=== PATIENT | male | born 1930 | race Caucasian/White ===

== ENCOUNTER → 2017-09-30 | Outpatient (CLI) | payer OTHER ==
[~2017-09-30] MED LIST: ASPI-555 PO; BUDE10.2 IH; ENAL5TAB PO; METO-408 PO; PRED5TAB PO; TOLT2TAB PO; TRIA0.2573 PO
== END | disposition home or self-care (01) ==
LOC: SHCH 13:02
PROVIDERS: ATTEND Internal Medicine Cardiovascular Disease
DX: I10 Essential (primary) hypertension (principal); I25.10 Atherosclerotic heart disease of native coronary artery without angina pectoris
CPT/HCPCS: 93306; 93880

== ENCOUNTER → 2017-10-16 | Outpatient (CLI) | payer OTHER ==
[~2017-10-16] MED LIST changes: +REGADENOSON 0.4 MG/5 ML PF SYG IVP SCH
== END | disposition home or self-care (01) ==
LOC: SHCH 07:47
PROVIDERS: ATTEND Internal Medicine Cardiovascular Disease
DX: I10 Essential (primary) hypertension (principal)
CPT/HCPCS: 78452; 93017; 96374; A9500 ×2; J2785

== ENCOUNTER → 2018-09-10 | Outpatient (CLI) | payer OTHER ==
[~2018-09-10] MED LIST changes: +ALPR-410 PO; +AMOX-426 PO; +CLOP75TA32 PO; +MONT10TA24 PO; +OMEP20CA10 PO; +PRED10TA3 PO; -PRED5TAB PO; -REGADENOSON 0.4 MG/5 ML PF SYG IVP SCH; -TRIA0.2573 PO
== END | disposition home or self-care (01) ==
LOC: SHCH 08:05
PROVIDERS: ATTEND Internal Medicine Cardiovascular Disease
DX: I35.8 Other nonrheumatic aortic valve disorders (principal); I11.9 Hypertensive heart disease without heart failure; Z95.1 Presence of aortocoronary bypass graft
CPT/HCPCS: 93306

== ENCOUNTER → 2018-09-16 | Outpatient (CLI) | payer OTHER ==
[~2018-09-16] MED LIST changes: +REGADENOSON 0.4 MG/5 ML PF SYG IVP SCH
== END | disposition home or self-care (01) ==
LOC: SHCH 08:06
PROVIDERS: ATTEND Internal Medicine Cardiovascular Disease
DX: I10 Essential (primary) hypertension (principal)
CPT/HCPCS: 78452; 93017; 96374; A9500 ×2

== ENCOUNTER 2019-12-04 08:05 | Emergency (ER) | payer OTHER ==
[~2019-12-04 08:05] MED LIST changes: -AMOX-426 PO; -MONT10TA24 PO; -OMEP20CA10 PO; +OMEP20CA12 PO; -REGADENOSON 0.4 MG/5 ML PF SYG IVP SCH
[2019-12-04] MEDS ORDERED: TETANUS/DIPHTHERIA TOXOID [ADULT] 0.5 ML VIAL IM ONE (08:48)
[2019-12-04] MEDS ORDERED: OCTYL 2-CYANOACRYLATE 1 EACH TP ONE ×2 (08:52→09:48)
== END 2019-12-04 11:12 | disposition home or self-care (01) ==
LOC: EDH 08:05
DX: S62.102A Fracture of unspecified carpal bone, left wrist, initial encounter for closed fracture (principal); S51.012A Laceration without foreign body of left elbow, initial encounter; J44.9 Chronic obstructive pulmonary disease, unspecified; I10 Essential (primary) hypertension; Z87.891 Personal history of nicotine dependence; Z88.8 Allergy status to other drugs, medicaments and biological substances; W18.39XA Other fall on same level, initial encounter; Y93.89 Activity, other specified; Y92.098 Other place in other non-institutional residence as the place of occurrence of the external cause; Y99.8 Other external cause status
CPT/HCPCS: 12032; 29125; 73110; 90471; 90714

== ENCOUNTER 2020-01-13 11:40 | Emergency (ER) | payer OTHER ==
[2020-01-13] VITALS (7 sets, daily range): BP systolic 120–154; BP diastolic 57–76
[2020-01-13] MEDS ORDERED: SODIUM CHLORIDE 0.9% 500ML 500 ML IV ONE (11:55)
[2020-01-13 12:00] LABS: BASOPHILS % (AUTO) 0.7 % (0.0-5.0); EOSINOPHILS % (AUTO) 1.8 % (0.0-8.0); HEMATOCRIT 43.5 % (42-54); LYMPHOCYTES % (AUTO) 15.3 % (21.0-51.0); MEAN CORPUSCULAR HEMOGLOBIN 29.9 pg (27.0-33.0); MEAN CORPUSCULAR HGB CONC 33.1 g/dL (32.0-36.0); MEAN CORPUSCULAR VOLUME 90.2 fL (79-99); MONOCYTES % (AUTO) 7.2 % (3.0-13.0); NEUTROPHILS % (AUTO) 74.6 % (40.0-77.0); PLATELET COUNT (AUTO) 196 K/uL (130-400); RED BLOOD CELL COUNT(AUTO) 4.82 MIL/uL (4.50-6.20); RED CELL DISTRIBUTION WIDTH 13.7 % (11.0-15.5); WHITE BLOOD COUNT (AUTO) 12.2 K/uL (4.8-10.8)
[2020-01-13 12:13] LABS: CREATININE 1.1 mg/dL (0.5-1.5); POTASSIUM 3.6 mmol/L (3.5-5.1)
[2020-01-13 12:17] LABS: ALBUMIN 3.7 g/dL (3.5-5.0); BILIRUBIN,TOTAL 0.9 mg/dL (0.2-1.0); TOTAL PROTEIN, SERUM 6.9 g/dL (6.0-8.3)
[2020-01-13] MEDS ORDERED: ONDANSETRON HCL 4 MG/2 ML VIAL ONE (12:26)
[2020-01-13] MEDS ORDERED: GLUCAGON 1MG KIT 1 MG ML ONE (12:26)
[2020-01-13] MEDS ORDERED: PROPOFOL 10 MG/ML 20ML VIAL IV ONE ×2 (15:06→15:36)
[2020-01-13] MEDS ORDERED: LIDOCAINE HCL 2% 20ML ONE (15:07)
[2020-01-13] MEDS ORDERED: GLYCOPYRROLATE 0.2 MG/ML 5 ML VIAL ONE (15:07)
[2020-01-13] MEDS ORDERED: SUCCINYLCHOLINE 200MG/10ML SYR ONE (15:07)
== END 2020-01-13 17:57 | disposition home or self-care (01) ==
LOC: EDH 11:40
DX: T18.128A Food in esophagus causing other injury, initial encounter (principal); K22.2 Esophageal obstruction; R11.2 Nausea with vomiting, unspecified; J44.9 Chronic obstructive pulmonary disease, unspecified; I10 Essential (primary) hypertension; Z88.8 Allergy status to other drugs, medicaments and biological substances; Z86.73 Personal history of transient ischemic attack (TIA), and cerebral infarction without residual deficits; Z87.891 Personal history of nicotine dependence; X58.XXXA Exposure to other specified factors, initial encounter; Y93.89 Activity, other specified; Y92.89 Other specified places as the place of occurrence of the external cause; Y99.8 Other external cause status
CPT/HCPCS: 36415; 43247; 43249; 80053; 84484; 85025; 93005; 96361; 96374; 96375; 99284; A4222; A4223; A4606; A4620; J0330; J1610; J2405; J2704 ×2; J3490 ×2; J7040

== ENCOUNTER 2020-01-16 08:55 | Inpatient (IN) | payer OTHER ==
[~2020-01-16] VITALS: Ht 167.6 cm; Wt 76.2 kg
[2020-01-16] VITALS (24 sets, daily range): BP systolic 46–169; BP diastolic 48–89
[~2020-01-16 08:55] MED LIST changes: -ASPI-555 PO; +ASPI-556 PO; -ENAL5TAB PO; +ENAL5TAB17 PO
[2020-01-16 09:43] LABS: BASOPHILS % (AUTO) 0.2 % (0.0-5.0); EOSINOPHILS % (AUTO) 1.2 % (0.0-8.0); HEMATOCRIT 36.6 % (42-54); LYMPHOCYTES % (AUTO) 14.5 % (21.0-51.0); MEAN CORPUSCULAR HEMOGLOBIN 29.3 pg (27.0-33.0); MEAN CORPUSCULAR HGB CONC 32.2 g/dL (32.0-36.0); MEAN CORPUSCULAR VOLUME 90.8 fL (79-99); MONOCYTES % (AUTO) 5.4 % (3.0-13.0); NEUTROPHILS % (AUTO) 78.4 % (40.0-77.0); PLATELET COUNT (AUTO) 200 K/uL (130-400); RED BLOOD CELL COUNT(AUTO) 4.03 MIL/uL (4.50-6.20); RED CELL DISTRIBUTION WIDTH 13.8 % (11.0-15.5); WHITE BLOOD COUNT (AUTO) 15.4 K/uL (4.8-10.8)
[2020-01-16 09:45] LABS: CREATININE 1.1 mg/dL (0.5-1.5); POTASSIUM 3.5 mmol/L (3.5-5.1)
[2020-01-16 09:49] LABS: INR 0.95 (0.85-1.15); PROTHROMBIN TIME 10.3 SEC (9.6-11.6)
[2020-01-16 09:51] LABS: ALBUMIN 2.9 g/dL (3.5-5.0); BILIRUBIN,TOTAL 1.9 mg/dL (0.2-1.0); TOTAL PROTEIN, SERUM 6.8 g/dL (6.0-8.3)
[2020-01-16] MEDS ORDERED: ALBUTEROL SULFATE 0.083% 2.5 MG/3 ML INH IH ONE ×4 (11:00)
[2020-01-16] MEDS ORDERED: DIATR MEGLU/DIATRIZOATE SODIUM 30 ML BOTTLE ONE (11:39)
[2020-01-16] MEDS ORDERED: ZOSYN 3.375GM+NS 50ML 50 ML IV ONE (11:44)
[2020-01-16] MEDS ORDERED: SODIUM CHLORIDE 0.9% 1000ML 1,000 ML IV SCH (12:03)
[2020-01-16] MEDS ORDERED: HYDRALAZINE HCL 20 MG/ML VIAL IV PRN (12:15)
[2020-01-16] MEDS ORDERED: NITROGLYCERIN 0.4 MG SL TAB SL PRN (12:15)
[2020-01-16] MEDS ORDERED: ACETAMINOPHEN 325 MG TAB PO PRN (12:15)
[2020-01-16] MEDS ORDERED: ACETAMINOPHEN 650 MG SUPPOSITORY RC ONE (12:16)
[2020-01-16] MEDS ORDERED: PANTOPRAZOLE 40 MG/VIAL IVP SCH (12:30)
[2020-01-16] MEDS ORDERED: PANTOPRAZOLE SODIUM 80 MG in SODIUM CHLORIDE 0.9% 100 ML IV SCH (12:30)
[2020-01-16] MEDS: DOXYCYCLINE 100MG+NS 250ML 250 ML IV SCH (13:15)
[2020-01-16] MEDS ORDERED: ACETAMINOPHEN 650 MG SUPPOSITORY RC PRN (13:30)
[2020-01-16] MEDS ORDERED: PHARMACY COMMUNICATION MISC SCH (13:30)
[2020-01-16] MEDS ORDERED: DOXYCYCLINE 100MG+NS 250ML 250 ML IV ONE (13:48)
[2020-01-16] MEDS: IPRATROPIUM/ALBUTEROL SULFATE 3 ML SOLUTION IH SCH ×3 (13:55→22:00)
[2020-01-16] MEDS ORDERED: PROPOFOL 10 MG/ML 20ML VIAL IV ONE (15:34)
[2020-01-16] MEDS ORDERED: FENTANYL CITRATE PF 50 MCG/1 ML 2ML VIAL ONE (15:35)
[2020-01-16] MEDS ORDERED: SUCCINYLCHOLINE 200MG/10ML SYR ONE (15:35)
[2020-01-16] MEDS ORDERED: ONDANSETRON HCL 4 MG/2 ML VIAL ONE (15:35)
[2020-01-16] MEDS ORDERED: LIDOCAINE HCL 2% 20ML ONE (15:35)
[2020-01-16] MEDS ORDERED: MAGNESIUM 2GM PREMIX 50ML 50 ML IV SCH (16:00)
[2020-01-16] MEDS ORDERED: LIDOCAINE HCL-MPF 1% 2ML VIAL IJ PRN (16:00)
[2020-01-16] MEDS: LACTATED RINGERS 1000ML 1,000 ML IV SCH (17:15)
[2020-01-16] MEDS: ZOSYN 3.375GM+NS 50ML 50 ML IV SCH ×2 (17:41→19:50)
[2020-01-16] MEDS: HYDROCORTISONE SOD SUCCINATE 100 MG/2 ML VIAL IV SCH (20:55)
[2020-01-16] MEDS ORDERED: FAMOTIDINE/PF 20 MG/2 ML VIAL IV SCH (21:00)
--- NOTE | 2020-01-16 23:53 | NUR ---
Dr. Porter called the unit for an update on patient. Orders received and entered into system.
[2020-01-16] MEDS ORDERED: IPRATROPIUM 0.5 MG/2.5 ML INH IH ONE (23:55)
[2020-01-17] VITALS (14 sets, daily range): BP systolic 119–171; BP diastolic 36–84
[2020-01-17] MEDS ORDERED: IPRATROPIUM 0.5 MG/2.5 ML INH IH PRN
[2020-01-17] MEDS ORDERED: DOXYCYCLINE 100MG+NS 250ML 250 ML IV ONE (00:20)
[2020-01-17] MEDS: DOXYCYCLINE 100MG+NS 250ML 250 ML IV SCH ×2 (00:26→11:53)
[2020-01-17] MEDS ORDERED: MORPHINE SULFATE 2 MG/ML 1ML SYG IM PRN (00:30)
[2020-01-17] MEDS ORDERED: MORPHINE SULFATE 2 MG/ML 1ML SYG ONE (00:32)
[2020-01-17] MEDS: LACTATED RINGERS 1000ML 1,000 ML IV SCH (01:58)
[2020-01-17] MEDS: IPRATROPIUM/ALBUTEROL SULFATE 3 ML SOLUTION IH SCH ×6 (02:00→21:45)
[2020-01-17] MEDS: ZOSYN 3.375GM+NS 50ML 50 ML IV SCH ×3 (03:47→20:12)
[2020-01-17 04:30] LABS: BASOPHILS % (AUTO) 0.1 % (0.0-5.0); EOSINOPHILS % (AUTO) 0.3 % (0.0-8.0); LYMPHOCYTES % (AUTO) 4.6 % (21.0-51.0); MEAN CORPUSCULAR HEMOGLOBIN 29.4 pg (27.0-33.0); MEAN CORPUSCULAR HGB CONC 31.6 g/dL (32.0-36.0); MEAN CORPUSCULAR VOLUME 93.1 fL (79-99); MONOCYTES % (AUTO) 7.3 % (3.0-13.0); NEUTROPHILS % (AUTO) 87.2 % (40.0-77.0); PLATELET COUNT (AUTO) 173 K/uL (130-400); RED BLOOD CELL COUNT(AUTO) 3.33 MIL/uL (4.50-6.20); RED CELL DISTRIBUTION WIDTH 14.2 % (11.0-15.5); WHITE BLOOD COUNT (AUTO) 10.3 K/uL (4.8-10.8)
[2020-01-17 04:38] LABS: ALBUMIN 2.2 g/dL (3.5-5.0); BILIRUBIN,TOTAL 1.3 mg/dL (0.2-1.0); CREATININE 0.9 mg/dL (0.5-1.5); POTASSIUM 3.7 mmol/L (3.5-5.1); TOTAL PROTEIN, SERUM 5.6 g/dL (6.0-8.3)
[2020-01-17 05:33] LABS: PLATELET MORPHOLOGY PLT CLUMPS PRESENT
--- NOTE | 2020-01-17 08:00 | NUR ---
PT'S GRANDSON CALLED TO GET UPDATE ON PT. HE WAS GIVEN UPDATE AND WAS ADVISED THAT PT HAD HIS CELL PHONE AT BEDSIDE IF HE WISHED TO TALK TO HIM.
[2020-01-17] MEDS: HYDROCORTISONE SOD SUCCINATE 100 MG/2 ML VIAL IV SCH ×2 (08:35→20:20)
[2020-01-17] MEDS ORDERED: ENOXAPARIN SODIUM 30 MG/0.3 ML SQ SCH (09:00)
--- NOTE | 2020-01-17 10:54 | NUR ---
RD NOTIFICATION PT WITH HIGH MALNUTRITION RISK. SIGNIFICANT WT LOSS WITHIN TWO WEEKS. RECOMMEND ALTERED MEANS NUTRITION MEDICALLY FEASIBLE. ENTERAL VS PPN MEDICALLY FEASIBLE. PT WITH ESOPHAGEAL PERFORATION, POSSIBLE DIVERTICULOSIS, POSSIBLE BOWEL LOOPS PER EMR AND IMAGING. RD TO CONTINUE TO MONITOR. PLEASE NOTIFY RD ADDITIONAL NUTRITION CONCERNS ARISE. THANK YOU. Addendum: 01/17/20 at [address] Amended: Links added.
--- NOTE | 2020-01-17 11:20 | NUR ---
INITIAL SW spoke with patient. He states he lives alone. Emergency contacts are grandson, Dank Pablo, and granddaughter, Dodie Abdul, . Both live in [place]. Patient has no home services but has a private caregiver to come to assist him as needed. DME: standard walker, nebulizer, BPM. Patient states he is able to complete ADL's independently. His Caregiver assists with transportation. PCP is Dr. Sunday Christensen. Patient did not provide name of pharmacy he uses. DCP is home. SW spoke to patient's grandson, Dank Pablo. Stanislav stated that family was planning for patient to move back to [place] permanently in the next few weeks. As per stanislav, patient would spend suarez in [place] and then return to [place] in the Fall. Addendum: 01/17/20 at 1125 by JOSE JACOBS Amended: Links added.
--- NOTE | 2020-01-17 11:25 | NUR ---
Emergency Contacts Patient's emergency contacts are grandson, Dank Pablo, and granddaughter, Dodie Abdul, . Both live in [place].
[2020-01-17] MEDS: METOPROLOL TARTRATE 1 MG/ML 5ML VIAL IV SCH ×2 (14:45→20:14)
--- NOTE | 2020-01-17 15:30 | NUR ---
picc line 6 chadian 3 lumen picc line inserted to right upper arm using sterile technique, pt alexa well, no adverse reactions noted, picc line at 42 cm insertion site, 4 cm exposed . sterile dressing applied after completion , all 3 ports flushed without complications , good blood return to all ports, pt denied any pain or numbness to right arm,report given to primary nurse Ozzie Crabtree RN. picc line ready to be used per VPS bullseye confirmation. tip placed to lower 1/3 of SVC or at AT CAJ
--- NOTE | 2020-01-17 15:45 | NUR ---
CALLED DR. COTTON CONCERNING PICC LINE AND NEEDING ORDERS FOR TPN. OFFICE STAFF ADVISED NURSING STAFF THAT HE WOULD BE [place] [facility] [place].
[2020-01-17] MEDS ORDERED: SODIUM CHLORIDE 3% FOR INHALATION 4 ML/AMP VIAL.NEB IH ONE (18:50)
[2020-01-17] MEDS ORDERED: [UNRECOGNIZED DRUG - OTHER] IV SCH ×16 (20:00)
[2020-01-17] MEDS ORDERED: POTASSIUM ACETATE IV SCH ×16 (20:00)
[2020-01-17] MEDS ORDERED: SODIUM CHLORIDE IV SCH ×16 (20:00)
[2020-01-17] MEDS ORDERED: SODIUM ACETATE IV SCH ×16 (20:00)
[2020-01-18] VITALS (19 sets, daily range): BP systolic 119–184; BP diastolic 59–92
[2020-01-18] MEDS: DOXYCYCLINE 100MG+NS 250ML 250 ML IV SCH ×2 (01:24→14:01)
[2020-01-18] MEDS: IPRATROPIUM/ALBUTEROL SULFATE 3 ML SOLUTION IH SCH ×4 (01:48→21:54)
[2020-01-18] MEDS: METOPROLOL TARTRATE 1 MG/ML 5ML VIAL IV SCH ×3 (03:19→21:25)
[2020-01-18] MEDS: ZOSYN 3.375GM+NS 50ML 50 ML IV SCH ×3 (03:19→21:22)
[2020-01-18 04:42] LABS: BASOPHILS % (AUTO) 0.1 % (0.0-5.0); EOSINOPHILS % (AUTO) 0.4 % (0.0-8.0); HEMATOCRIT 29.2 % (42-54); LYMPHOCYTES % (AUTO) 5.4 % (21.0-51.0); MEAN CORPUSCULAR HEMOGLOBIN 29.2 pg (27.0-33.0); MEAN CORPUSCULAR HGB CONC 30.8 g/dL (32.0-36.0); MEAN CORPUSCULAR VOLUME 94.8 fL (79-99); MONOCYTES % (AUTO) 6.8 % (3.0-13.0); NEUTROPHILS % (AUTO) 86.8 % (40.0-77.0); PLATELET COUNT (AUTO) 166 K/uL (130-400); RED BLOOD CELL COUNT(AUTO) 3.08 MIL/uL (4.50-6.20); RED CELL DISTRIBUTION WIDTH 14.2 % (11.0-15.5); WHITE BLOOD COUNT (AUTO) 8.4 K/uL (4.8-10.8)
[2020-01-18 05:05] LABS: ALBUMIN 1.9 g/dL (3.5-5.0); BILIRUBIN,TOTAL 0.7 mg/dL (0.2-1.0); POTASSIUM 3.3 mmol/L (3.5-5.1); TOTAL PROTEIN, SERUM 5.2 g/dL (6.0-8.3)
[2020-01-18] MEDS: LACTATED RINGERS 1000ML 1,000 ML IV SCH ×2 (07:30→11:32)
[2020-01-18] MEDS: POTASSIUM CHLORIDE 10MEQ/100ML 100 ML IV PRN ×2 (07:57→12:34)
[2020-01-18] MEDS: HYDROCORTISONE SOD SUCCINATE 100 MG/2 ML VIAL IV SCH ×2 (08:01→21:42)
[2020-01-18] MEDS ORDERED: DIATR MEGLU/DIATRIZOATE SODIUM 30 ML BOTTLE ONE (08:42)
[2020-01-18] MEDS ORDERED: TRIA0.2573 PO ×2 (12:04→12:09)
[2020-01-18] MEDS ORDERED: IPRATROPIUM/ALBUTEROL SULFATE 3 ML SOLUTION IH SCH (14:00)
--- NOTE | 2020-01-18 14:25 | NUR ---
RD FOLLOW UP NOTE PICC LINE PLACED. TPN INITIATED AT 75MLS/HR. TPN MEETING PT PROTEIN NEEDS. NOTED, ELEVATED BG LEVELS (346), AT TIME OF SCREEN. RD TO MONITOR DAILY. PLEASE NOTIFY NUTRITION CONCERNS ARISE. THANK YOU. Addendum: 01/18/20 at [address] Amended: Links added.
[2020-01-18] MEDS ORDERED: METOPROLOL TARTRATE 1 MG/ML 5ML VIAL IV SCH (14:45)
[2020-01-18] MEDS ORDERED: SIMETHICONE 80 MG TAB.CHEW PO SCH (16:00)
--- NOTE | 2020-01-18 16:31 | NUR ---
ELEVATED BP DR MCCRARY NOTIFIED VIA TELEPHONE THAT PATIENT'S BP REMAINS HIGH, CHARTED (SYSTOLIC BP 170'S, AND HR 1TEENS); ORDER GIVEN TO INCREASE METOPROLOL FROM DOSE CHANGED EARLIER TODAY TO 5MG IV Q6 TO 7.5MG IV Q6; WILL CONTINUE TO MONITOR
[2020-01-18] MEDS: INSULIN HUMULIN R 100 UNIT/ML 3ML SQ SCH ×2 (16:37→21:20)
--- NOTE | 2020-01-18 17:15 | NUR ---
BEDSIDE REPORT GIVEN TO BETHEL ESTRELLA AND PATIENT MOVED TO ROOM 230; PATIENT STATES NO COMPLAINTS AT THIS TIME
--- NOTE | 2020-01-18 17:20 | NUR ---
RECEIVED TRANSFER TO ROOM 230. AAOX3, RESP.'S EVEN AND UNLABORED. O2 AT 3L/NC. DENIES ANY C/O SOB, DENIES ANY CURRENT PAIN. TPN RESUMED TO PICC LINE; TWO PORTS PATENT, FLUSHED WITH 10 ML NS. ORIENTED TO ROOM AND SURROUNDINGS. CALL LIGHT WITHIN REACH, VERBALIZED ABILITY TO USE. BED LOWS, SIDE RAILS UP X2.
[2020-01-18] MEDS ORDERED: SODIUM ACETATE IV SCH ×8 (21:00)
[2020-01-18] MEDS ORDERED: [UNRECOGNIZED DRUG - OTHER] IV SCH ×8 (21:00)
[2020-01-18] MEDS ORDERED: POTASSIUM ACETATE IV SCH ×8 (21:00)
[2020-01-18] MEDS ORDERED: SODIUM CHLORIDE IV SCH ×8 (21:00)
[2020-01-18] MEDS: INSULIN GLARGINE 100 UNITS/ML 10 ML VIAL SQ SCH (21:20)
[2020-01-18] MEDS: SIMETHICONE 80 MG TAB.CHEW PO SCH (21:23)
[2020-01-19] MEDS: DOXYCYCLINE 100MG+NS 250ML 250 ML IV SCH ×2 (00:05→12:34)
[2020-01-19] MEDS ORDERED: GUAIFENESIN-CODEINE 5 ML SYRUP ONE ×2 (00:14→00:22)
[2020-01-19] MEDS ORDERED: GUAIFENESIN-CODEINE 5 ML SYRUP PO PRN (00:15)
[2020-01-19 04:00] VITALS: BP 168/92
[2020-01-19] MEDS: ZOSYN 3.375GM+NS 50ML 50 ML IV SCH ×3 (04:10→19:49)
[2020-01-19] MEDS: METOPROLOL TARTRATE 1 MG/ML 5ML VIAL IV SCH ×2 (04:11→09:58)
[2020-01-19 04:55] LABS: BASOPHILS % (AUTO) 0.2 % (0.0-5.0); EOSINOPHILS % (AUTO) 2.4 % (0.0-8.0); HEMATOCRIT 34.1 % (42-54); LYMPHOCYTES % (AUTO) 6.5 % (21.0-51.0); MEAN CORPUSCULAR HEMOGLOBIN 30.1 pg (27.0-33.0); MEAN CORPUSCULAR HGB CONC 31.4 g/dL (32.0-36.0); MEAN CORPUSCULAR VOLUME 96.1 fL (79-99); MONOCYTES % (AUTO) 6.9 % (3.0-13.0); NEUTROPHILS % (AUTO) 83.5 % (40.0-77.0); PLATELET COUNT (AUTO) 198 K/uL (130-400); RED BLOOD CELL COUNT(AUTO) 3.55 MIL/uL (4.50-6.20); RED CELL DISTRIBUTION WIDTH 14.3 % (11.0-15.5); WHITE BLOOD COUNT (AUTO) 9.9 K/uL (4.8-10.8)
[2020-01-19 05:23] LABS: ALBUMIN 2.1 g/dL (3.5-5.0); BILIRUBIN,TOTAL 0.7 mg/dL (0.2-1.0); CREATININE 0.9 mg/dL (0.5-1.5); POTASSIUM 3.7 mmol/L (3.5-5.1); TOTAL PROTEIN, SERUM 5.8 g/dL (6.0-8.3)
[2020-01-19] MEDS: IPRATROPIUM/ALBUTEROL SULFATE 3 ML SOLUTION IH SCH ×3 (06:25→21:18)
[2020-01-19] MEDS: INSULIN HUMULIN R 100 UNIT/ML 3ML SQ SCH ×3 (06:28→16:30)
[2020-01-19 08:20] VITALS: BP 166/75
[2020-01-19] MEDS: SIMETHICONE 80 MG TAB.CHEW PO SCH ×3 (09:44→20:40)
[2020-01-19] MEDS: HYDROCORTISONE SOD SUCCINATE 100 MG/2 ML VIAL IV SCH ×2 (09:44→20:40)
[2020-01-19] MEDS: METOPROLOL TARTRATE 25 MG TAB PO SCH ×2 (12:41→20:41)
[2020-01-19] MEDS: ENALAPRIL MALEATE 5 MG TAB PO SCH ×2 (12:42→20:41)
[2020-01-19 12:50] VITALS: BP 167/82
--- NOTE | 2020-01-19 13:30 | NUR ---
DR. ASENCIO IN ROOM SPEAKING WITH PT. RE:PLAN OF CARE. ORDERS RECEIVED.
--- NOTE | 2020-01-19 15:00 | NUR ---
RESTING IN BED WITH HOB AT 30 DEGREES, RESP.'S EVEN AND UNLABORED. WATCHING TELEVISION. DENIES ANY C/O AT THIS TIME.
--- NOTE | 2020-01-19 16:16 | NUR ---
RD FOLLOW UP Full Liquid Diet Order initiated. Glucerna with meals recommended, per MD. RD Recommend to wean off of TPN. Rec to discontinue TPN once Pt is tolerating solids. LBM 01/16/20. Elevated BG levels with steroid medications. RD to continue to monitor. Please notify as additional nutrition concerns arise. Thank you. Addendum: 01/19/20 at [address] RD Amended: Links added.
[2020-01-19 16:35] VITALS: BP 162/95
[2020-01-19] MEDS ORDERED: INSULIN HUMULIN R 100 UNIT/ML 3ML SQ SCH (17:15)
--- NOTE | 2020-01-19 17:30 | NUR ---
SITTING IN CHAIR AT BEDSIDE. CALL LIGHT WITHIN REACH.
[2020-01-19] MEDS: INSULIN LISPRO 100 UNIT/ML 3ML SQ SCH ×3 (17:51→20:50)
[2020-01-19 19:11] VITALS: BP 146/88
[2020-01-19] MEDS: INSULIN GLARGINE 100 UNITS/ML 10 ML VIAL SQ SCH (20:44)
[2020-01-19 23:14] VITALS: BP 140/75
[2020-01-20 03:29] VITALS: BP 151/81
[2020-01-20 04:11] LABS: HEMATOCRIT 29.5 % (42-54); MEAN CORPUSCULAR HEMOGLOBIN 30.3 pg (27.0-33.0); MEAN CORPUSCULAR HGB CONC 32.5 g/dL (32.0-36.0); MEAN CORPUSCULAR VOLUME 93.1 fL (79-99); PLATELET COUNT (AUTO) 184 K/uL (130-400); RED BLOOD CELL COUNT(AUTO) 3.17 MIL/uL (4.50-6.20); RED CELL DISTRIBUTION WIDTH 14.3 % (11.0-15.5); WHITE BLOOD COUNT (AUTO) 7.9 K/uL (4.8-10.8)
[2020-01-20] MEDS: ZOSYN 3.375GM+NS 50ML 50 ML IV SCH ×3 (04:27→20:37)
[2020-01-20] MEDS: INSULIN LISPRO 100 UNIT/ML 3ML SQ SCH ×7 (06:11→20:22)
[2020-01-20] MEDS: IPRATROPIUM/ALBUTEROL SULFATE 3 ML SOLUTION IH SCH (06:40)
[2020-01-20 08:40] VITALS: BP 143/67
[2020-01-20] MEDS: ENALAPRIL MALEATE 5 MG TAB PO SCH ×2 (09:21→20:37)
[2020-01-20] MEDS: SIMETHICONE 80 MG TAB.CHEW PO SCH ×3 (09:21→20:37)
[2020-01-20] MEDS: HYDROCORTISONE SOD SUCCINATE 100 MG/2 ML VIAL IV SCH ×2 (09:21→20:36)
[2020-01-20] MEDS: METOPROLOL TARTRATE 25 MG TAB PO SCH ×2 (09:21→20:37)
--- NOTE | 2020-01-20 09:45 | NUR ---
DR ASENCIO NEW ORDERS PER DR ASENCIO, STATES DIET CAN BE ADVANCED AND DC PLANNING FOR TOMORROW.
[2020-01-20 12:29] VITALS: BP 128/65
[2020-01-20 16:35] VITALS: BP 156/100
[2020-01-20] MEDS: PANTOPRAZOLE SODIUM 40 MG TABLET.DR PO SCH (17:39)
[2020-01-20 20:06] VITALS: BP 165/75
[2020-01-20] MEDS: INSULIN GLARGINE 100 UNITS/ML 10 ML VIAL SQ SCH (20:22)
--- NOTE | 2020-01-20 21:00 | NUR ---
PT ABLE TO TAKE MEDICATIONS. PICC LINE VERIFIED, BLOOD DRAW NOTED. NO PAIN STATED. SOME SWELLING AND REDNESS NOTED TO SITE.
[2020-01-20 23:32] VITALS: BP 134/54
[2020-01-21] VITALS (8 sets, daily range): BP systolic 95–144; BP diastolic 38–94
[2020-01-21] MEDS: ZOSYN 3.375GM+NS 50ML 50 ML IV SCH ×3 (03:55→20:34)
--- NOTE | 2020-01-21 04:00 | NUR ---
HOSPITALIST AKI MARR NOTIFIED OF PT SOB, WHEEZING, LOWER O2 LEVELS, LOC CHANGES. ORDERED STAT LASIX, CXR, LACTIC ACID, PROCALCITONIN, AND 1:1 SITTER. DUONEBS Q6HRS PRN. AND X1DOSE NOW.
[2020-01-21] MEDS: FUROSEMIDE 10 MG/ML 4ML VIAL IV SCH (04:15)
[2020-01-21] MEDS ORDERED: IPRATROPIUM/ALBUTEROL SULFATE 3 ML SOLUTION IH SCH (04:15)
[2020-01-21] MEDS ORDERED: FUROSEMIDE 10 MG/ML 4ML VIAL ONE (04:21)
[2020-01-21] MEDS ORDERED: IPRATROPIUM/ALBUTEROL SULFATE 3 ML SOLUTION IH ONE (04:26)
[2020-01-21 04:42] LABS: BASOPHILS % (AUTO) 0.7 % (0.0-5.0); EOSINOPHILS % (AUTO) 5.6 % (0.0-8.0); MEAN CORPUSCULAR HEMOGLOBIN 29.4 pg (27.0-33.0); MEAN CORPUSCULAR HGB CONC 31.6 g/dL (32.0-36.0); MEAN CORPUSCULAR VOLUME 93.3 fL (79-99); MONOCYTES % (AUTO) 9.6 % (3.0-13.0); NEUTROPHILS % (AUTO) 69.5 % (40.0-77.0); PLATELET COUNT (AUTO) 230 K/uL (130-400); RED BLOOD CELL COUNT(AUTO) 3.43 MIL/uL (4.50-6.20); RED CELL DISTRIBUTION WIDTH 14.4 % (11.0-15.5); WHITE BLOOD COUNT (AUTO) 6.8 K/uL (4.8-10.8)
[2020-01-21 04:49] LABS: ABG BASE EXCESS -0.7 mmol/L (-2.0-3.0); ABG PCO2 24 mmHg (35-48)
[2020-01-21 04:57] LABS: POTASSIUM 3.7 mmol/L (3.5-5.1)
[2020-01-21] MEDS: PANTOPRAZOLE SODIUM 40 MG TABLET.DR PO SCH ×2 (06:08→16:46)
[2020-01-21] MEDS: INSULIN LISPRO 100 UNIT/ML 3ML SQ SCH ×7 (06:08→20:51)
[2020-01-21] MEDS: IPRATROPIUM/ALBUTEROL SULFATE 3 ML SOLUTION IH SCH ×4 (06:19→23:17)
--- NOTE | 2020-01-21 08:00 | NUR ---
ASSESSMENT PT IS SITTING UP IN CHAIR, AWAKE AND ALERT BUT HAS UNSTEADY GAIT, ATTEMPTING TO GET OUT OF CHAIR, 1:1 SITTER AT BEDSIDE. REORIENTATED TO PLACE AND SITUATION. AM MEDS GIVEN WITH WATER, NO CHOKING NO GAGGING NOTED. TOLERATED BREAKFAST. CALL LIGHT WITHIN REACH.
[2020-01-21] MEDS: SIMETHICONE 80 MG TAB.CHEW PO SCH ×3 (08:18→20:34)
[2020-01-21] MEDS: HYDROCORTISONE SOD SUCCINATE 100 MG/2 ML VIAL IV SCH ×2 (08:18→20:34)
[2020-01-21] MEDS: METOPROLOL TARTRATE 25 MG TAB PO SCH ×2 (08:18→20:35)
[2020-01-21] MEDS: ENALAPRIL MALEATE 5 MG TAB PO SCH ×2 (08:19→20:37)
[2020-01-21] MEDS: INSULIN GLARGINE 100 UNITS/ML 10 ML VIAL SQ SCH (20:50)
[2020-01-22 04:00] VITALS: BP 154/77
[2020-01-22 04:01] LABS: BASOPHILS % (AUTO) 0.5 % (0.0-5.0); EOSINOPHILS % (AUTO) 2.7 % (0.0-8.0); HEMATOCRIT 31.5 % (42-54); LYMPHOCYTES % (AUTO) 13.9 % (21.0-51.0); MEAN CORPUSCULAR HEMOGLOBIN 29.2 pg (27.0-33.0); MEAN CORPUSCULAR HGB CONC 31.7 g/dL (32.0-36.0); MEAN CORPUSCULAR VOLUME 92.1 fL (79-99); MONOCYTES % (AUTO) 8.4 % (3.0-13.0); NEUTROPHILS % (AUTO) 73.8 % (40.0-77.0); PLATELET COUNT (AUTO) 276 K/uL (130-400); RED BLOOD CELL COUNT(AUTO) 3.42 MIL/uL (4.50-6.20); RED CELL DISTRIBUTION WIDTH 14.2 % (11.0-15.5); WHITE BLOOD COUNT (AUTO) 7.5 K/uL (4.8-10.8)
[2020-01-22 04:09] LABS: CREATININE 1.2 mg/dL (0.5-1.5)
[2020-01-22] MEDS: FUROSEMIDE 10 MG/ML 4ML VIAL IV SCH (04:15)
[2020-01-22] MEDS: ZOSYN 3.375GM+NS 50ML 50 ML IV SCH (04:23)
[2020-01-22] MEDS: INSULIN LISPRO 100 UNIT/ML 3ML SQ SCH ×4 (06:15→11:30)
[2020-01-22] MEDS: IPRATROPIUM/ALBUTEROL SULFATE 3 ML SOLUTION IH SCH ×2 (06:18→11:05)
[2020-01-22] MEDS: PANTOPRAZOLE SODIUM 40 MG TABLET.DR PO SCH (06:36)
[2020-01-22] MEDS: POTASSIUM CHLORIDE 20MEQ/100ML 100 ML IV PRN ×2 (06:36→10:15)
[2020-01-22 07:55] VITALS: BP 122/73
[2020-01-22] MEDS: HYDROCORTISONE SOD SUCCINATE 100 MG/2 ML VIAL IV SCH (08:37)
[2020-01-22] MEDS: ENALAPRIL MALEATE 5 MG TAB PO SCH (08:38)
[2020-01-22] MEDS: METOPROLOL TARTRATE 25 MG TAB PO SCH (08:38)
[2020-01-22] MEDS: SIMETHICONE 80 MG TAB.CHEW PO SCH (08:38)
[2020-01-22] MEDS ORDERED: POTASSIUM CHLORIDE 20 MEQ ERTAB PO ONE (10:14)
[2020-01-22] MEDS ORDERED: AUGM250L PO (10:18)
--- NOTE | 2020-01-22 11:04 | NUR ---
DISCHARGE INSTRUCTIONS/INFORMATION GIVEN TO PATIENT. TEACH BACK METHOD UTILIZED TO EDUCATE PATIENT ON DIET, NEW MEDICATION PRESCRIBED, SAFETY PRECAUTIONS, S/S TO MONITOR FOR, WHEN TO CALL MD, AND FOLLOW UP APPOINTMENTS. ALL BELONGINGS WERE PACKED. TELE PACK REMOVED AND RETURNED. AWAITING PATIENT'S RIDE.
--- NOTE | 2020-01-22 11:37 | NUR ---
TRIPLE LUMEN PICC LINE REMOVED ORDERED. TIP WAS INTACT. PATIENT TOLERATED PICC LINE REMOVAL.
== END 2020-01-22 11:44 | disposition home or self-care (01) | DRG 871 ==
LOC: EDH 08:55 → EDHIP 12:03 → 2BH 17:21 → 2AH 01-18 17:20 → 2DH 01-21 06:47 → 2AH 01-21 17:58
PROVIDERS: ADMIT Internal Medicine; ATTEND Internal Medicine
PROC: 0D738DZ Dilation of Lower Esophagus with Intraluminal Device, Via Natural or Artificial Opening Endoscopic (ICD-10-PCS; 2020-01-16)
PROC: BD11ZZZ Fluoroscopy of Esophagus (ICD-10-PCS; 2020-01-16)
PROC: 02HV33Z Insertion of Infusion Device into Superior Vena Cava, Percutaneous Approach (ICD-10-PCS; principal; 2020-01-17)
PROC: B548ZZA Ultrasonography of Superior Vena Cava, Guidance (ICD-10-PCS; 2020-01-17)
PROC: 3E0436Z Introduction of Nutritional Substance into Central Vein, Percutaneous Approach (ICD-10-PCS; 2020-01-17)
DX: A41.50 Gram-negative sepsis, unspecified (principal); K22.3 Perforation of esophagus; J98.51 Mediastinitis; J98.11 Atelectasis; E44.0 Moderate protein-calorie malnutrition; J98.2 Interstitial emphysema; I16.0 Hypertensive urgency; I25.10 Atherosclerotic heart disease of native coronary artery without angina pectoris; R54 Age-related physical debility; J61 Pneumoconiosis due to asbestos and other mineral fibers; K22.2 Esophageal obstruction; D64.9 Anemia, unspecified; I10 Essential (primary) hypertension; I77.819 Aortic ectasia, unspecified site; Z77.090 Contact with and (suspected) exposure to asbestos; R13.10 Dysphagia, unspecified; R93.3 Abnormal findings on diagnostic imaging of other parts of digestive tract; K31.89 Other diseases of stomach and duodenum; Z68.27 Body mass index [BMI] 27.0-27.9, adult; Z79.52 Long term (current) use of systemic steroids; Z79.899 Other long term (current) drug therapy; Z95.1 Presence of aortocoronary bypass graft; Z87.891 Personal history of nicotine dependence; Z86.73 Personal history of transient ischemic attack (TIA), and cerebral infarction without residual deficits; Z88.8 Allergy status to other drugs, medicaments and biological substances; Z82.5 Family history of asthma and other chronic lower respiratory diseases; K20.9 Esophagitis, unspecified
CPT/HCPCS: 36415; 36600; 43247; 43249; 43266; 71045; 71250; 74176; 74220; 76000; 80048; 80053; 82550; 82803; 82948; 83036; 83605; 83735; 83880; 84100; 84132; 84145; 84484; 85025; 85027; 85610; 85730; 86850; 86900; 86901; 87040; 87071; 87205; 87633; 87804; 93005; 94640; 94644; 94664; 96361; 96374; 96375; 97039; A4606; C1751; C1874; C1894; C9113; G0378; J0330; J0610; J1610; J1720; J1815; J1940; J2405; J2543; J2704; J3010; J3475; J3480; J3490; J7040; J7120; J7131; Q9963